=== PATIENT | male | born 1990 | race African-American/Black ===

== ENCOUNTER 2020-08-05 09:24 | Emergency (ER) | payer OTHER ==
[2020-08-05 09:42] VITALS: BP 118/70; PULSE 76; TEMP 98.9; BMI 24.7
[2020-08-05] MEDS ORDERED: AZITHROMYCIN 500 MG TABLET PO ONE (10:07)
[2020-08-05] MEDS ORDERED: AZITHROMYCIN 250 MG TABLET ONE (10:14)
== END 2020-08-05 11:10 | disposition home or self-care (01) ==
LOC: JER 09:24
DX: R30.0 Dysuria (principal)
CPT/HCPCS: 99284-25

== ENCOUNTER 2020-08-12 06:19 | Emergency (ER) | payer OTHER ==
[2020-08-12 07:13] VITALS: BP 120/69; PULSE 69; TEMP 98.4; BMI 25.0
== END 2020-08-12 08:20 | disposition home or self-care (01) ==
LOC: JER 06:19
DX: R07.9 Chest pain, unspecified (principal)
CPT/HCPCS: 71046-TC-FY; 93005; 93010; 99284-25

== ENCOUNTER 2021-07-02 08:15 | Emergency (ER) | payer OTHER ==
[2021-07-02 08:27] VITALS: BP 122/70; PULSE 58; TEMP 98.4; BMI 24.8
[2021-07-02 09:37] LABS: BASO % 0.5 % (0-2.0); EOS % 0.5 % (0-4.5); HEMATOCRIT 40.7 % (35.4-49); HEMOGLOBIN 13.3 GM/dL (11.7-16.9); LYMPH % 19.6 % (8-40); MCH 30.6 pg (25.7-33.7); MCHC 32.6 g/dl (32.0-35.9); MEAN CELL VOLUME 93.7 fl (80-96); MEAN PLT VOLUME 8.1 fl (7.5-11.1); MONO % 10.3 % (3.8-10.2); NEUT % 69.1 % (42.8-82.8); PLATELET COUNT 175 10^3/uL (134-434); RBC 4.35 M/mm3 (4.00-5.60); RDW 14.2 % (11.9-15.9); WHITE BLOOD COUNT 5.8 K/mm3 (4.0-10.0)
[2021-07-02 10:11] LABS: CHLORIDE 110 mmol/L (98-107); SODIUM 139 mmol/L (136-145)
[2021-07-02 10:12] LABS: CALCIUM 8.8 mg/dL (8.5-10.1)
[2021-07-02 10:13] LABS: ALBUMIN 3.9 g/dl (3.4-5.0); ANION GAP 3 MMOL/L (8-16); BLOOD UREA NITROGEN 7.7 mg/dL (7-18); CO2 26 mmol/L (21-32); GLUCOSE,RANDOM 81 mg/dL (74-106); MAGNESIUM 1.9 mg/dL (1.8-2.4)
[2021-07-02 10:16] LABS: CREATININE 0.9 mg/dL (0.55-1.3); SGOT/AST 14 U/L (15-37); SGPT/ALT 17 U/L (13-61)
[2021-07-02 10:19] LABS: ALK PHOS 61 U/L (45-117)
[2021-07-02 11:01] LABS: BILIRUBIN,TOTAL 0.8 mg/dL (0.2-1)
== END 2021-07-02 11:21 | disposition left against medical advice (07) ==
LOC: JER 08:15
DX: R07.9 Chest pain, unspecified (principal)
CPT/HCPCS: 36415; 71046-TC-FY; 80053; 82550; 82553; 83735; 84443; 85025; 93005; 93010; 99285-25